=== PATIENT | female | born 1985 ===

== ENCOUNTER 2023-09-18 09:29 | Outpatient (AMB) | payer OTHER, SELFPAY ==
[2023-09-18 09:33] VITALS: BP 112/74; PULSE 86; BMI 21.8
--- NOTE | 2023-09-18 09:33 | A.OFFVIS_ITS ---
Intake Vital Signs 09/18/23 09:33 Height 5 ft 5 in Weight 131 lb BMI 21.8 BP 112/74 Blood Pressure Location Rt brachial Position Sitting Pulse 86 Pulse Source Pulse Oximeter Intake Visit Reasons: Follow for Headache-LVM Intake Note: Patient presents for follow up headaches. patient states my headaches are coming back I have headaches everyday. Allergies No Known Allergies Allergy (Verified 09/18/23 09:35) Medication List - Last Reconciled 09/18/23 by LINK Bowen acetaminophen (Tylenol) 325 mg PO QID PRN indomethacin 25 mg PO TID 30 days HPI HPI Comments History of Present Illness Details 37-yr-old female presents for f/u visit, accompanied by her friend. Pt denies any significant interval medical changes. She has again been having right parietal-occipital pressure, like a bruise being pressed. Lasts a few seconds, reoccurs in a half hour- up to 20 x's a day. This headache is not a/w red eyes, watery eyes, facial droop, sweaty/anhidrosis. Pain can wake her up at night. Pain intensity has increased to at least 5/10. She also has been having a new holocranial headache- hard to describe pain type. A/w phonophobia. It can occur upon when waking up. It is more intense, pain level > 5/10. Last 30 minutes, but can also reoccur during the day. Using Tylenol prn which can help short term. Has been having a feeling of dizziness after being on an elevator. Does have a known cross-bite and TMJ issues. Denies jaw pain, difficulty chewing, neck pain. [facility]LY [facility] Surgical History H/O thumb surgery H/O wrist surgery Social History Alcohol intake: current Alcohol intake frequency: a few times a week Alcohol type: wine Patient Tobacco Use Status: Former Tobacco user Quit Date: 8 years ago. Review of Systems Const All systems reviewed & are unremarkable except as noted in HPI and below Physical Exam Vital Signs: Last Vital Signs Pulse 86 09/18/23 09:33 BP 112/74 09/18/23 09:33 BMI result Body Mass Index 21.8 Const General: cooperative and no acute distress Orientation/consciousness: patient oriented x3 HEENT Head: Yes normocephalic Resp Effort & Inspection: normal respiratory effort and able to speak in complete sentences Neuro General: patient oriented x3, gait normal and CN's II-XI intact bilaterally Cognition (Neuro): normal cognition Motor exam (neuro): 5/5 motor strength present throughout Psych Appearance: grossly normal Mental Status: mental status grossly normal Speech and movement: Normal speech and movement present Affect: normal affect Attitude: cooperative Thought process: Normal thought process present Thought content: Normal thought content present Insight: Good insight present (Psych) Judgement: Good judgement present (Psych) Assessment & Plan Assessment & Plan (1) Right-sided headache: Code(s): R51.9 - Headache, unspecified (2) Worsening headaches: Code(s): R51.9 - Headache, unspecified (3) 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 Trial Indomethacin 25mg po TID. Check baseline CBC, CMP- lab slip given to pt. f/u in 3-4 months or sooner prn. Orders: Orders MR head/brain wo/w con Today F40.298 - Other specified phobia, R42 - Dizziness and giddiness, R51.9 - Headache, unspecified Comprehensive Met. Panel Today R51.9 - Headache, unspecified Complete Blood Count Auto Diff Today R51.9 - Headache, unspecified Medications: New indomethacin administer with food or milk 25 mg PO TID 90 caps 2RF 30 days Coding Level of Care Code Est Pt Level 4 (67552) Diagnoses Right-sided headache R51.9 Worsening headaches R51.9 Phonophobia F40.298 Dizziness R42
== END 2023-09-18 10:18 | disposition home or self-care (01) ==
PROVIDERS: PCP Internal Medicine; Visit Provider Nurse Practitioner Family
DX: R51.9 Headache, unspecified (principal); F40.298 Other specified phobia; R42 Dizziness and giddiness
CPT/HCPCS: 99214

== ENCOUNTER → 2023-09-18 09:29 | Outpatient (BNVA) | payer OTHER, SELFPAY | PROVIDERS: PCP Internal Medicine; Visit Provider Nurse Practitioner Family ==

== ENCOUNTER 2024-03-18 08:32 | Outpatient (AMB) | payer OTHER, SELFPAY ==
--- NOTE | 2024-03-18 08:37 | A.OFFVIS_ITS ---
Vital Signs 03/18/24 08:41 Height 5 ft 5 in Weight 130 lb BMI 21.6 BP 98/74 Blood Pressure Location Rt brachial Position Sitting Pulse 73 Pulse Source Pulse Oximeter Pulse Oximetry (%) 98 Oxygen Delivery Method Room Air Intake Visit Reasons: 3 mo f/u for Headache-LVM Intake Note: Patient presents for 3 month follow up headaches. Patients headaches are way better. doesn't get them as much. Allergies No Known Allergies Allergy (Verified 03/18/24 08:42) Medication List - Last Reconciled 03/18/24 by LINK Bowen acetaminophen (Tylenol) 325 mg PO QID PRN indomethacin 25 mg PO TID 30 days HPI Comments Details: 38-yr-old female presents for f/u visit. Pt denies any significant interval medical changes. Pt reports she is still having the right sided brief pressure pain, occurring 1- 2 x's a day, usually every other day. She did not try Indomethacin, as she was waiting for the MRI to be done. She continues to have 5/10 holocranial headache- hard to describe pain type a/w phonophobia.Lasts 30 min, It can occur upon when waking up, but can also reoccur during the day. Tylenol prn which can help short term. Has been having a feeling of dizziness after being on an elevator. Her jaw is not bothersome at this time. Unfortunately, the MRI brain was approved with only a short window, and had by the time the pt was scheduled to have the MRI done, so the brain MRI was not completed. Baseline headache characteristics: Mild 4/10, more severe 7/10, Right parietal- occipital, and sometimes into right occipital and neck, pressure, like a bruise being pressed. Lasts a few seconds, but then come back in a half hour. Not a/w photo/phonophobia, autonomic s/s, or N/V. Can wake her up at night. Duration of a few seconds, w/ up to 20 attacks per day PFSH Surgical History H/O thumb surgery H/O wrist surgery Social History Alcohol intake: current Alcohol intake frequency: a few times a week Alcohol type: wine Patient Tobacco Use Status: Former Tobacco user Quit Date: 8 years ago. Physical Exam Vital Signs: Last Vital Signs Pulse 73 03/18/24 08:41 BP 98/74 03/18/24 08:41 Pulse Ox 98 03/18/24 08:41 Oxygen Delivery Method Room Air 03/18/24 08:41 BMI result Body Mass Index 21.6 Const General: cooperative and no acute distress Orientation/consciousness: patient oriented x3 Resp Effort & Inspection: normal respiratory effort and able to speak in complete sentences Neuro General: patient oriented x3 Cranial nerves: Yes CN's II-XII intact bilaterally Cognition (Neuro): normal cognition Psych Appearance: grossly normal Mental Status: mental status grossly normal Speech and movement: Normal speech and movement present Affect: normal affect Attitude: cooperative Assessment & Plan Assessment & Plan (1) Right-sided headache: Code(s): R51.9 - Headache, unspecified Category: Medical (2) TMJ (temporomandibular joint disorder): Code(s): M26.609 - Unspecified temporomandibular joint disorder, unspecified side Category: Medical (3) Headache: Code(s): R51.9 - Headache, unspecified Category: Medical Plan Pt again advised to undergo brain MRI w/wo- to assess for central and posterior fossa secondary etiologies of worsening right sided side locked headaches, new holocranial headaches, new dizziness. Again trial Indomethacin 25mg po TID. Check baseline CBC, CMP. f/u in 6 months or sooner prn. Coding Level of Care Code Est Pt Level 4 (32490) Diagnoses Right-sided headache R51.9 TMJ (temporomandibular joint disorder) M26.609 Headache R51.9
[2024-03-18 08:41] VITALS: BP 98/74; PULSE 73; O2SAT 98; BMI 21.6
== END 2024-03-18 09:23 | disposition home or self-care (01) ==
PROVIDERS: PCP Internal Medicine; Visit Provider Nurse Practitioner Family
DX: R51.9 Headache, unspecified (principal); M26.609 Unspecified temporomandibular joint disorder, unspecified side
CPT/HCPCS: 99214

== ENCOUNTER → 2024-03-18 08:32 | Outpatient (BNVA) | payer OTHER, SELFPAY | PROVIDERS: PCP Internal Medicine; Visit Provider Nurse Practitioner Family ==

== ENCOUNTER 2024-04-09 10:42 | Outpatient (REF) | payer OTHER, SELFPAY ==
[2024-04-09 17:50] LABS: MANUAL DIFF FLAG NO
[2024-04-09 18:06] LABS: Basophils Absolute Auto 0.1 X10*3/uL (0.0-0.2); Basophils Percent Auto 0.8 % (0-2); Eosinophils Absolute Auto 0.2 X10*3/uL (0.0-0.4); Eosinophils Percent Auto 1.6 % (0-4); Hematocrit 40.2 % (37.0-47.0); Hemoglobin 13.8 g/dl (12.0-16.0); Imm Gran Abs Auto 0.02 X10*3/uL (0.00-0.03); Imm Gran Pct Auto 0.2 % (0.0-0.4); Mean Corpuscular HGB Conc 34.3 g/dl (31.0-35.0); Mean Corpuscular Hemoglobin 31.9 pg (27.0-33.0); Mean Corpuscular Volume 92.8 fL (80.0-98.0); Mean Platelet Volume 10.3 fL (9.4-12.3); Monocytes Absolute Auto 0.7 X10*3/uL (0.1-1.2); Monocytes Percent Auto 7.6 % (2-11); Neutrophils Absolute Auto 6.3 x10*3/uL (2.0-8.3); Neutrophils Percent Auto 67.8 % (45-73); Platelet Count 347 X10*3/uL (160-400); Red Blood Count 4.33 X10*6/uL (4.20-5.50); Red Cell Distribution Width 11.6 % (11.0-16.0); White Blood Count 9.2 X10*3/uL (4.8-10.8)
[2024-04-09 18:17] LABS: Alanine Aminotransferase 9 U/L (0-31); Albumin Level 4.4 g/dL (3.5-5.0); Alkaline Phosphatase 51 U/L (39-117); Anion Gap 14 (12-20); Aspartate Amino Transferase 12 U/L (5-31); Bilirubin Total 0.4 mg/dL (0.0-1.0); Blood Urea Nitrogen 13 mg/dL (9-16); Carbon Dioxide 25 mmol/L (22-29); Chloride 104 mmol/L (96-108); Estimated Glomerular Filt Rate > 60; Glucose Random 103 mg/dL (60-115); Potassium 4.2 mmol/L (3.3-5.1); Sodium 139 mmol/L (135-145); Total Protein 7.6 g/dL (6.5-8.0)
== END 2024-04-09 10:43 | disposition home or self-care (01) ==
LOC: HO.HKASLDS 10:42
PROVIDERS: Visit Provider Nurse Practitioner Family
DX: R51.9 Headache, unspecified (principal)
CPT/HCPCS: 36415; 80053; 85025

== ENCOUNTER 2025-08-11 09:53 | Outpatient (AMB) | payer OTHER, SELFPAY ==
--- NOTE | 2025-08-11 09:56 | A.OFFVIS_ITS ---
Vital Signs 08/11/25 10:12 BP 100/80 Blood Pressure Location Lt brachial Position Sitting Pulse 71 Pulse Source Pulse Oximeter Pulse Oximetry (%) 95 Oxygen Delivery Method Room Air Intake Visit Reasons: follow up [employer] Required: No Accompanied by: Self / Same As Patient Allergies No Known Allergies Allergy (Verified 08/11/25 10:11) Medication List - Last Reconciled 08/11/25 by LINK Bowen acetaminophen (Tylenol) 325 mg PO QID PRN HPI Comments Details: 39-yr-old female presents for f/u visit of headache. Pt denies any significant interval medical changes. March 2024, Brain MRI with and without contrast was normal. Pt reports she has bouts of the right sided brief pressure pain, may come for a few weeks, and then not come for a while. She did not try Indomethacin, as the pressure is not too bothersome. She has an occasional holocranial headache in the spring w/ the season change. Her jaw is not bothersome at this time, though notes hse has a cross bite that would need surgery to correct. Uses her mouth gurad consistently. Tries to do some neck exercises at home. Notes her shoulder position can be assymetric, tries to self-correct. Has never had PT for this. Feels she is too busy and these s/s are not botherosme enough at this point to do PT at this time. Baseline headache characteristics: Mild 4/10, more severe 7/10, Right parietal- occipital, and sometimes into right occipital and neck, pressure, like a bruise being pressed. Lasts a few seconds, but then come back in a half hour. Not a/w photo/phonophobia, autonomic s/s, or N/V. Can wake her up at night. Duration of a few seconds, w/ up to 20 attacks per day PFSH Surgical History H/O thumb surgery H/O wrist surgery Social History Alcohol intake: current Alcohol intake frequency: a few times a week Alcohol type: wine Patient Tobacco Use Status: Former Tobacco user Physical Exam Vital Signs: Last Vital Signs Pulse 71 08/11/25 10:12 BP 100/80 08/11/25 10:12 Pulse Ox 95 08/11/25 10:12 Oxygen Delivery Method Room Air 08/11/25 10:12 Const General: cooperative and no acute distress Orientation/consciousness: patient oriented x3 Resp Effort & Inspection: normal respiratory effort and able to speak in complete sentences Neuro General: patient oriented x3, gait normal and moves all extremities Cranial nerves: Yes CN's II-XII intact bilaterally Cognition (Neuro): normal cognition Motor exam (neuro): 5/5 motor strength present throughout Psych Appearance: grossly normal Mental Status: mental status grossly normal Speech and movement: Normal speech and movement present Affect: normal affect Attitude: cooperative Assessment & Plan Assessment & Plan (1) Right-sided headache: Code(s): R51.9 - Headache, unspecified Category: Medical (2) TMJ (temporomandibular joint disorder): Code(s): M26.609 - Unspecified temporomandibular joint disorder, unspecified side Category: Medical (3) Headache: Code(s): R51.9 - Headache, unspecified Category: Medical Qualifiers: Headache type: unspecified Plan Reviewed brain MRI w/wo- normal. Hold Indomethacin 25mg po TID- pt never started it. May take OTC Ibuprofen prn. Encouraged pt to do home cervical neck stretches/ROM. f/u in 12 months if needed, or sooner prn. Coding Level of Care Code Est Pt Level 3 (09132) Diagnoses Right-sided headache R51.9 TMJ (temporomandibular joint disorder) M26.609 Headache R51.9 Headache type: unspecified
[2025-08-11 10:12] VITALS: BP 100/80; PULSE 71; O2SAT 95
--- OUTSIDE RECORDS SUMMARY | 2025-08-11 12:12 | XMS_ITS | Encounter Summary ---
Author Organization [facility] Address [address] [place] [address] Care Team Providers Care Accounts Payable Administrator Name Role Phone Josi George MD Primary Care Prov ider Reason for Visit * Reason Onset Date Comments Chest Pain 07/24/2025 Cough 07/24/2025 Encounter Details Date Type Department Care Team (Late st Contact Info) Description 07/24/2025 Telephone Adult Medicine [address] [phone] Josi George MD [address] [place] [address] Social History Tobacco Use Types Packs/Day Years Used Date Smoking Tobacco: Former Smokeless Tobacco: Never Alcohol Use Standard Drinks/Week Comments Yes 0 (1 standard drink = 0.6 oz pur e alcohol) Comments Unknown Sex and Gender Information Value Date Recorded Sex Assigned at Not on file Legal Sex Female 8:28 PM EST Gender Identity Not on file Sexual Orientation Not on file documented as of this encounter Progress Notes * Kylah Orourke RN - 07/24/2025 1:09 PM EDT Pt. States in the beginning of June she had a feeling of bad anxiety and feeling emotional With chest heaviness it felt like someone was sitting on my chest she states the anxiety went away and she does not or did not feel she had stress. She does not often feel anxious and last time was maybe last year . Anxiety feeling is gone but he chest tightness and pressure is still there . She has it every day but it intermittently increases . She denies sob but has to take a deep breath and feeling at times radiates up her neck and has racing heart hr at times but no feeling of skipped beats /palpitations , no fever or chills, no n/v no diarrhea,, no calf or lower pain , heat or redness . Last LMP 3/12 weeks ago . I advised with her symptoms to be evaluated in the ER. R/O cardiac issues . Pt. Agrees in will follow up in office after eval * Gina Bruno - 07/24/2025 1:00 PM EDT Patient call requires triage: Symptoms patient is presenting: c/o chest pain and dry cough How long has patient had these symptoms?: 3 weeks For ALL patients calling to schedule any appointment (routine, sick visit, follow up, consult, etc.) in the outpatient setting please ask the following questions: Do you have fever of higher than 101, sore throat with difficulty swallowing or severe shortness ofbreath? no If YES to any of these above symptoms, send a message to triage and do not book. Red dot. If no, an audio or video visit should be booked. Have you had close contact with someone with Coronavirus in the last 14 days? no Have you traveled abroad? no Have you traveled recently to another state outside of [place], [place], [place], [place], [place], [place], [place]? no o If yes, did you quarantine for 14 days or have a negative covid test? no If yes to any of the above, patient is not to be scheduled in office until after 14 day quarantine or negative covid test. If pain or injury related was it due to an accident at work or from a motor vehicle accident? If yes, date of accident/Injury: No If yes, gather 3rd democrat insurance information Third Green Party Information: not applicable PCP: Josi Arguello MD Payor: RACHEL / Plan: JEANPOINT / Product Type: *No Product type* / documented in this encounter Plan of Treatment Upcoming Encounters Date Type Department Care Team (Late st Contact Info) Description 08/19/2025 10:30 AM EDT Consult General Surgery - [place] [address] [place] [address] Holly Oliver MD [address] [place] [id number] 10/14/2025 7:30 AM EST Office Visit Adult Medicine [facility] [address] [place], [place] [phone] Anne-Marie Elliott PA [address] [place], [place] documented as of this encounter Visit Diagnoses Not on filedocumented in this encounter Care Teams Accounts Payable Administrator Relationship Specialty Start Date End Date Josi George MD [address] [place] [address] PCP - General Internal Medicine 02/03/25 documented as of this encounter
--- OUTSIDE RECORDS SUMMARY | 2025-08-11 12:12 | XMS_ITS | Clinical Summary ---
Author Organization [facility] [address] [place] [address] [place] [phone] Phone Care Team Providers Care Career Development Coordinator/Teacher Name Role Phone Josi George MD Primary Care [facility] ider Allergies No known active allergies Medications selenium sulfide 2.25 % shampoo Apply 2 Pump topically twice a week. Dispense available volume, Use twice weekly, 12/19/19 23 Active hydrocortisone (ANUSOL-HC) 25 mg suppository Insert 1 suppository (25 mg total) into the rectum 2 (two) times a day if needed for hemorrhoids. 30 suppository 01/24/20 25 Active Active Problems Problem Noted Date Diagnosed Date Acne vulgaris 11/18/2024 Overview (11/18/2024): sees non [facility] derm First trimester bleeding 06/10/2016 Encounters Date Type Department Care Team Description 07/24/2025 Telephone Adult Medicine [address] [phone] Josi George MD from Last 3 Months Immunizations Name Administration Dates Next Due HPV, Quadrivalent 01/06/2011,06/23/2010,04/30/20 10 Influenza Quadravalent, MDCK , 0.5ml, preservative free (Flucelvax) 6mo and older 10/08/2020 Tdap Tetanus diptheria acell ular pertussis (Boostrix; Adacel) 7yo and older 03/06/2018,04/06/2016 Surgical History Surgery Date Site/Laterality Comments WRIST SURGERY 2019 Left PROCEDURE: HISTORICAL WRIST SURGERY Medical History Medical History Date Comments Acne vulgaris DX:Acne vulgaris ; COMMENT: sees non [facility] derm Family History Medical History Relation Name Comments CABG Father Heart attack Father Hyperlipidemia Maternal Grandmother Hypertension Maternal Grandmother Breast cancer Neg Hx Colon cancer Neg Hx Diabetes Neg Hx Ovarian cancer Neg Hx Pancreatic cancer Neg Hx Stroke Neg Hx Uterine cancer Neg Hx Relation Name Status Comments Brother 1 Alive 1987; Anton Brother 2 Alive 1989; Noelnediane Brother 3 Alive 1995; Ronald Father Alive healthy Maternal Grandfather Maternal Grandmother Alive HTN, ch ol Mother Alive healthy Paternal Grandfather Paternal Grandmother Social History Tobacco Use Types Packs/Day Years Used Date Smoking Tobacco: Former Smokeless Tobacco: Never Tobacco Cessation:Counseling Given: Not Answered Alcohol Use Standard Drinks/Week Comments Yes 0 (1 standard drink = 0.6 oz pur e alcohol) Comments Unknown Sex and Gender Information Value Date Recorded Sex Assigned at Not on file Legal Sex Female 8:28 PM EST Gender Identity Not on file Sexual Orientation Not on file Obstetrics History Last Filed Vital Signs Vital Sign Reading Time Taken Comments Blood Pressure 110/74 01/24/2025 10:30 AM EST Pulse 72 01/24/2025 10:30 AM EST Temperature 36.6 C (97.9 F) 01/24/2025 10:30 AM EST Respiratory Rate 14 01/24/2025 10:30 AM EST Oxygen Saturation 100% 01/24/2025 10:30 AM EST Inhaled Oxygen Concentration - - Weight 58.5 kg (129 lb) 01/24/2025 10:30 AM EST Height 165.1 cm (5' 5 ) 01/24/2025 10:30 AM EST Body Mass Index 21.47 01/24/2025 10:30 AM EST Plan of Treatment Upcoming Encounters Date Type Department Care Team (Late st Contact Info) Description 08/19/2025 10:30 AM EDT Consult General Surgery - [address] [place] [address] Holly Oliver MD [address] [place] [phone] 10/14/2025 7:30 AM EST Office Visit Adult Medicine [facility] [address] [place], [place] [phone] Anne-Marie Elliott PA [address] [place], [place] Health Maintenance Due Date Last Done Comments Hepatitis B Vaccines (1 of 3 - 19+ 3-dose series) 2005 HIV Screening 11/05/2022 Hepatitis C Screening 11/05/2022 Social Influencers of Health Screening 11/05/2022 Depression Screening 2024 COVID-19 Vaccine (3 - 2024-2 6 season) 2025 08/23/2021, 07/26/2021 Influenza Vaccine (#1) 2025 10/08/2020 Cervical Cancer Screening: HPV 10/31/2027 10/31/2022 DTaP,Tdap,and Td Vaccines (3 - Td or Tdap) 03/06/2028 03/06/2018, 04/06/2016 Cholesterol Screening (Lipid Panel) 02/14/2029 02/15/2024 HPV Vaccines Completed 01/06/2011, 06/23/2010, 04/30/2010 HIB Vaccines Aged Out No longer eligi ble based on patient's age to complete this topic Hepatitis A Vaccines Aged Out No long er eligible based on patient's age to complete this topic IPV Vaccines Aged Out No longer eligi ble based on patient's age to complete this topic MMR Vaccines Aged Out No longer eligi ble based on patient's age to complete this topic Meningococcal ACWY Vaccine Aged Out N o longer eligible based on patient's age to complete this topic Meningococcal B Vaccine Aged Out No l onger eligible based on patient's age to complete this topic Pneumococcal Vaccine: Pediatrics (0 to 5 Years) and At-Risk Patients (6 to 49 Years) Aged Out No longer eligible b ased on patient's age to complete this topic RSV Immunization Patients Under 20 months Aged Out No longer eligible b ased on patient's age to complete this topic Varicella Vaccines Aged Out No longer eligible based on patient's age to complete this topic Procedures Procedure Name Priority Date/Time Associated Diagnosis Comments LIPID PANEL Routine 02/15/2024 HPV Routine 10/31/2022 from Last 3 Months or Most Recently Relevant to Health Maintenance Results * Lipid panel (02/15/2024) LDL/HDL Ratio 2 0 - 4 Triglycerides 111 0 - 150 mg/dL Cholesterol 187 0 - 200 mg/dL HDL 81 >=40 mg/dL LDL Cholesterol 84 0 - 100 mg/dL Blood Venous blood specimen / Unknown Historical Provider MD LAB BLOOD ORDERABLES Clara l Result * Cervical Cancer Screening: HPV (10/31/2022) Pathologist [facility] Cervical Cancer Screening: HPV No interpretation , abstracted Historical Provider HEALTH MAINTENANCE Final Result from Last 3 Months or Most Recently Relevant to Health Maintenance Insurance [facility] Care Teams Career Development Coordinator/Teacher Relationship Specialty Start Date End Date Josi George MD [address] [place] [phone] PCP - General Internal Medicine 02/03/25
--- OUTSIDE RECORDS SUMMARY | 2025-08-11 12:12 | XMS_ITS | Clinical Summary ---
Author Organization [facility] Address [facility] [address] [address] Phone Care Team Providers Care Cellulose Insulation Helper Name Role Phone Stew Power MD Primary Care Provider [phone] Allergies No known active allergies Medications No known medications Active Problems No known active problems Resolved Problems Problem Noted Date Diagnosed Date Resolved Date Full-term premature rupture of membranes with onset of labor within 24 hours of rupture 04/22/2018 06/11/2018 Encounter for supervision of other normal 10/02/2017 06/11/2018 Overview (03/06/2018): Group PN care? no Rh + Flu \declined Tdap 03/06/18 Hgb 11.4 GTT 94 GBS * PPBC * Assessment & Plan (11/06/2017 10:36 AM EST): Rh positive Flu: declines Tdap * Hgb * GTT * GBS * PPBC * Encounter for other screenin g for genetic and chromosomal anomalies 10/02/2017 04/22/2018 Overview (11/08/2017): Low risk AFP Immunizations Immunization Administration Dates Next Due Tdap 03/06/2018 Family History Medical History Relation Comments No Known Problems Father Hypertension Maternal Grandmother Hypertension Mother Relation Status Comments Brother Alive Father Alive Maternal Grandfather Maternal Grandmother Alive Mother Alive Paternal Grandfather Paternal Grandmother Social History Tobacco Use Types Packs/Day Years Used Date Smoking Tobacco: Former Smokeless Tobacco: Never Tobacco Cessation:Counseling Given: Not Answered Alcohol Use Standard Drinks/Week Comments Yes 2 (1 standard drink = 0.6 oz pur e alcohol) Education Answer Date Recorded Are you interested in more education? Not on yissel e 03/24/2023 Are you concerned about learning? Not on file 03/24/2023 No 03/24/2023 No 03/24/2023 Digital Access Answer Date Recorded No 04/22/2023 No 04/22/2023 Reliable internet access at home? Not on file 04/22/2023 Device with a working camera? Not on file Education Answer Date Recorded What is the highest level of school you have completed or the highest degree you have received? 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 Not on file Not on file Not on file Last Filed Vital Signs Vital Sign Reading Time Taken Comments Blood Pressure 110/68 05/27/2024 10:52 AM EDT Pulse 84 04/24/2018 8:00 AM EDT Temperature 37.4 C (99.3 F) 04/24/2018 8:00 AM EDT Respiratory Rate 20 04/24/2018 8:00 AM EDT Oxygen Saturation 97% 04/24/2018 8:00 AM EDT Inhaled Oxygen Concentration - - Weight 56.7 kg (125 lb) 05/27/2024 10:52 AM EDT Height 165.1 cm (5' 5 ) 05/27/2024 10:52 AM EDT Body Mass Index 20.8 05/27/2024 10:52 AM EDT Plan of Treatment Health Maintenance Due Date Last Done Comments DEPRESSION SCREENING 1998 SMOKING Hx and SMOKELESS TOBACCO SCREENING 1999 HEPATITIS C SCREENING 2004 HIV ONE-TIME SCREENING (18-6 5 YEARS) 2004 INFLUENZA VACCINE (#1) 2025 10/08/2020 COVID-19 VACCINE (2024-2 6 season) 2025 08/23/2021, 07/26/2021 PAP SMEAR 05/27/2027 05/27/2024, 02/26/2019, 02/26/2019 Adult Td,Tdap Booster 03/06/2028 03/06/2018 , 04/06/2016 HEPATITIS A VACCINES Aged Out No long er eligible based on patient's age to complete this topic HIB VACCINES Aged Out No longer eligi ble based on patient's age to complete this topic MENINGOCOCCAL VACCINES (ACWY) Aged Out No longer eligible based on patient's age to complete this topic MENINGOCOCCAL VACCINES (B) Aged Out N o longer eligible based on patient's age to complete this topic PNEUMOCOCCAL VACCINES (0-49 years) Aged Out No longer eligible b ased on patient's age to complete this topic Medical Devices Not on file Procedures Procedure Name Priority Date/Time Associated Diagnosis Comments PAP TEST Routine 05/27/2024 12:00 AM EDT from Last 3 Months or Most Recently Relevant to Health Maintenance Results * Pap Test (05/27/2024 12:00 AM EDT) 05/27/2024 05/28/2024 8:1 6 AM EDT Narrative SEE NARRATIVE - 06/03/2024 11:45 AM EDT [address] [address] Director Product Management: Lexis Caraballo MD MOLDING MACHINE SETTER Cytology Report FINAL DIAGNOSIS A. PAP SMEAR (THIN PREP) CE: SPECIMEN ADEQUACY: Satisfactory for evaluation; transformation zone present. INTERPRETATION: NEGATIVE FOR INTRAEPITHELIAL LESION OR MALIGNANCY. This specimen was analyzed by the automated ThinPrep Imaging System (Plac[employer] Michael.) and the selected mcmullen were reviewed by a compressor service technician. Electronically Signed Out By: RYLEE Weems(ASCP) The Pap test is a screening test primarily for squamous cancers and precursors and has associated false-negative and false-positive results. New technologies such as liquid-based preparations may decrease but will not eliminate all false-negative results. Regular sampling and follow-up of unexplained clinical signs and symptoms are recommended to minimize false negative results. PROCEDURES/ADDENDA HPV Testing (Requested) Ordered Date: 05/28/2024 A. PAP SMEAR (THIN PREP) CE: Human Papilloma Virus Test NEGATIVE for high-risk Human Papilloma Virus types 16, 18, 45 and the Other high risk probe set (Includes 31, 33, 35, 39, 51, 52, 56, 58, 59, 66, 68) Note: Testing performed by [employer] Onclarity HR-HPV analysis. Clinical correlation is advised. This HPV test was performed at [facility], [address] [place] [address]. This test has been FDA approved for both SurePath and ThinPrep cervical cytology specimens. The accuracy and precision of this test for all other specimen sources has been verified in the Cytopathology Laboratory of the [facility] and has not been cleared or approved by the U.S. Food and Drug Administration. Clinical correlation is advised. CLINICAL HISTORY Date of Last Menstrual Period: 05-08-24 Other Clinical Conditions: Screening Pap SPECIMEN SOURCE A: PAP SMEAR (THIN PREP) CE Patient Name: DINORA CLARK : 1985 (Age: 38) Sex: F Institution: [facility] Location: [facility] Date of Collection: 05/27/2024 Date of Reported: 06/03/2024 11:45 Results to: Jeannie Muller Jeannie Gutierres MD CYTOLOGY ORDER RAMBO Final Result SEE NARRATIVE from Last 3 Months or Most Recently Relevant to Health Maintenance [facility] [place]ICE [place] [address] [place] [address] CHOICE CHOICE [facility] CHOICE [facility] Advance Directives For more information, please contact: [phone] (9AM - 5PM [facility], Monday-Monday) Documents on File Type Date Recorded Patient Manager Route Expl anation Healthcare Proxy 04/25/2018 12:37 PM * Full Code (Presumed) (Latest Code Status on File) Date Activated Date Inactivated Comments 04/22/2018 9:22 PM 04/24/2018 1:20 PM * Full Code (Presumed) Date Activated Date Inactivated Comments 04/22/2018 2:35 AM 04/22/2018 9:22 PM Healthcare Agents on File Name Relationship Healthcare Agent Relationship Communication Jose M Clark Spouse .Primary Health Care Agent (Proxy form on file) Care Teams Cellulose Insulation Helper Relationship Specialty Start Date End Date Stew Power MD [address] [place] [address] PCP - General Internal Medicine 10/16/17 Additional Source Comments The information contained in this document represents components of the legal health record. It is not the complete legal health record.[facility]
== END 2025-08-11 10:51 | disposition home or self-care (01) ==
LOC: HO.HSMS 09:53
PROVIDERS: PCP Internal Medicine; Visit Provider Nurse Practitioner Family
DX: R51.9 Headache, unspecified (principal); M26.609 Unspecified temporomandibular joint disorder, unspecified side
CPT/HCPCS: 99213